=== PATIENT | female | born 1965 | race Caucasian/White ===

== ENCOUNTER 2017-09-17 15:17 | Emergency (ER) | payer SELFPAY ==
[~2017-09-17] VITALS: Ht 167.6 cm; Wt 45.0 kg
[~2017-09-17 15:17] MED LIST: Z.0.NO CURRENT MEDS
[2017-09-17 15:27] VITALS: BP 140/62; PULSE 82; RESP 17; TEMP 97.8; O2SAT 96
[2017-09-17] MEDS ORDERED: AMOX875T PO (16:02)
--- NOTE | 2017-09-17 16:03 | PD ---
HPI Chief Complaint: Skin Problem Time Seen by Provider: 15:52 Travel History International Travel<30 days: No Contact w/Intl Traveler<30days: No Traveled to known affect area: No History of Present Illness HPI Patient is a 51-year-old female comes in complaining of a painful lump in her groin. She says she has had it for about a month. She says it was larger, but it has gotten smaller. She says it is painful to touch. She denies any other symptoms. She is not taking anything for the pain. She denies any wounds or burning with urination. Severity is mild. [facility] Past Medical History Diminished Hearing: No Tubal Ligation: Yes Past Surgical History Oral Surgery: Yes (CLEFT PALLET REPAIR) Social History Alcohol Use: Yes (She states a 6+pack today. BA reads 12+ today of beer.) Tobacco Use: Yes (1 pack a day.) Substance Use: Yes Allergies-Medications (Allergen,Severity, Reaction): Coded Allergies: No Known Allergies (Verified , 11/16/10) Reported Meds & Prescriptions Reported Meds & Active Scripts Active Reported No Current Meds (Miscellaneous Medication) [facility] [place] Review of Systems Except as stated in HPI: all other systems reviewed are Neg General / Constitutional: No: Fever, Chills Cardiovascular: No: Chest Pain or Discomfort Respiratory: No: Shortness of Breath Genitourinary: No: Dysuria Musculoskeletal: Positive: Pain Skin: Positive Lumps, No Rash Neurologic: No: Weakness, Dizziness Physical Exam Narrative GENERAL: Awake and alert, in no acute distress. SKIN: Focused skin assessment warm/dry. No wounds or signs of infection. HEAD: Atraumatic. Normocephalic. EYES: Pupils equal and round. No scleral icterus. ENT: Mucous membranes pink and moist. NECK: Trachea midline. No JVD. CARDIOVASCULAR: Regular rate and rhythm. No murmur appreciated. RESPIRATORY: No accessory muscle use. Clear to auscultation. Breath sounds equal bilaterally. GASTROINTESTINAL: Abdomen soft, non-tender, nondistended. Enlarged, tender, mobile lymph node in the right groin. No ulcerations, no surrounding erythema or warmth. MUSCULOSKELETAL: No obvious deformities. No clubbing. No cyanosis. No edema. NEUROLOGICAL: Awake and alert. No obvious cranial nerve deficits. Motor grossly within normal limits. Normal speech. PSYCHIATRIC: Appropriate mood and affect; insight and judgment normal. Data Data Last Documented VS Vital Signs Date Time Temp Pulse Resp B/P (MAP) Pulse Ox O2 Delivery O2 Flow Rate FiO2 09/17/17 15:27 97.8 82 17 140/62 (88) 96 MDM Medical Decision Making Medical Screen Exam Complete: Yes Emergency Medical Condition: Yes Medical Record Reviewed: Yes Differential Diagnosis Enlarged lymph node versus abscess versus cellulitis Narrative Course Patient is a 51-year-old female comes in complaining of a painful lump in her right groin. Exam shows an enlarged lymph node. When patient was asked about any other symptoms such as weight loss, night sweats, she said "no I am not here for any of that I just have pain in this lump." She did not want to discuss any further history. Patient was given a course of antibiotics. She is advised follow-up with a primary care doctor as she may need to have a biopsy performed if the lymph node does not go down. Advised return anytime for any worsening symptoms. Diagnosis Primary Impression: Enlarged lymph node Referrals: [facility] call for appointment Patient Instructions: General Instructions, Lymphadenopathy (ED) Additional Instructions: Take all of the antibiotics. Follow up with a primary care doctor to ensure the lump goes away, otherwise you may need to have it biopsied. Return to the ED as needed for any worsening symptoms. Scripts Amoxicillin (Amoxicillin) 875 Mg Tab 875 MG PO BID for Infection for 7 Days, #14 TAB 0 Refills Prov: Noris Khalil MD 09/17/17 Disposition: 01 DISCHARGE HOME Condition: Stable Noris Khalil MD Sep 17, 2017 16:02
== END 2017-09-17 16:15 | disposition home or self-care (01) ==
LOC: NEPD 15:17
DX: R59.0 Localized enlarged lymph nodes (principal); F17.210 Nicotine dependence, cigarettes, uncomplicated
CPT/HCPCS: 99283